=== PATIENT | male | born 1970 | race American Indian/Alaskan Native ===

== ENCOUNTER 2020-02-04 10:07 | Emergency (ER) | payer BC, OTHER ==
--- NOTE | 2020-02-04 10:28 | EDM.PDOC ---
ED HPI GENERAL MEDICAL PROBLEM - General Chief Complaint: Eye Problems Stated Complaint: [id number] SPRAYED HAND SANITZIER IN EYE/ SWOLLEN Time Seen by Provider: 02/04/20 10:27 Source of Information: Reports: Patient, RN, RN Notes Reviewed History Limitations: Reports: No Limitations - History of Present Illness INITIAL COMMENTS - FREE TEXT/NARRATIVE: Pt presents stating he put some hand eligibility technician in his hand and then it splashed up into his right eye. Pt states burning, blurring and irritated. Pt admits he instinctively rubbed the eye immediately and feels that he scratched it. He then irrigated the eye for several minutes with tap water, then reported to the nurse at his facility and she irrigated the eye again. Pt states it feels like something is in his eye or has scratched it. Pt states this happened while he was working at [employer]. Right Eye Pain Score (Numeric/FACES): 2 - Related Data Allergies Allergy/AdvReac Type Severity Reaction Status Date / Time No Known Allergies Allergy Verified 02/04/20 10:15 Home Meds: Home Meds Amoxicillin 500 mg PO DAILY 02/04/20 [History] Pioglitazone HCl 30 mg PO DAILY 02/04/20 [History] atorvaSTATin [Lipitor] 10 mg PO BEDTIME 02/04/20 [History] glipiZIDE [Glucotrol XL] 10 mg PO DAILY 02/04/20 [History] lisinopriL [Lisinopril] 10 mg PO DAILY 02/04/20 [History] metFORMIN [Glucophage] 1,000 mg PO BIDMEALS 02/04/20 [History] Past Medical History Cardiovascular History: Reports: None Respiratory History: Reports: None Gastrointestinal History: Reports: None Genitourinary History: Reports: None Musculoskeletal History: Reports: None Neurological History: Reports: None Psychiatric History: Reports: None Endocrine/Metabolic History: Reports: Diabetes, Type II Hematologic History: Reports: None Immunologic History: Reports: None Oncologic (Cancer) History: Reports: None Dermatologic History: Reports: None - Infectious Disease History Infectious Disease History: Reports: None - Past Surgical History Head Surgeries/Procedures: Reports: None HEENT Surgical History: Reports: Visual Other HEENT Surgeries/Procedures: hx dental surgery Social & Family History - Tobacco Use Smoking Status *Q: Former Smoker Years of Tobacco use: 20 Packs/Tins Daily: 0 Used Tobacco, but Quit: Yes Month/Year Tobacco Last Used: 08 - Caffeine Use Caffeine Use: Reports: Coffee, Soda - Recreational Drug Use Recreational Drug Use: No - Living Situation & Occupation Occupation: Employed ED ROS GENERAL - Review of Systems Review Of Systems: Comprehensive ROS is negative, except as noted in HPI. ED EXAM GENERAL W FULL EYE - Physical Exam Exam: See Below Exam Limited By: No Limitations General Appearance: Alert, WD/WN, No Apparent Distress Eye Exam: Right Eye: Conjunctival Injection, Corneal Abrasion, Left Eye: Normal Inspection, Bilateral Eye: EOMI, PERRL Eyelids: Right: Edema (mild swelling), Lid Everted for Exam, Left: Normal Appearance Conjunctiva & Sclera: Right: Conjunctival Edema, Injected, Left: Normal Appearance Cornea Exam: Right: Corneal Abrasion, Left: Normal Appearance Extraocular Movements: Bilateral: Intact Pupils: Normal Accommodation Pupillary Size: Bilateral: 3 mm Pupillary Reaction: Bilateral: Brisk Anterior Chamber: Right: Normal Appearance Throat/Mouth: Normal Inspection Head: Atraumatic, Normocephalic Respiratory/Chest: No Respiratory Distress Neurological: Alert, Oriented, CN II-XII Intact, No Motor/Sensory Deficits Psychiatric: Normal Mood Skin Exam: Warm, Dry, Intact Course - Vital Signs Last Recorded V/S: Last Vital Signs Temp 97.1 F 02/04/20 10:10 Pulse 72 02/04/20 10:10 Resp 18 02/04/20 10:10 BP 146/95 H 02/04/20 10:10 Pulse Ox 100 02/04/20 10:10 - Orders/Labs/Meds Orders: Active Orders 24 hr Category Date Time Status Vaccines to be Administered [RC] PER UNIT ROUTINE Care 02/04/20 10:37 Active Meds: Medications Discontinued Medications Generic Name Dose Route Start Last Admin Trade Name Freq PRN Reason Stop Dose Admin Diphtheria/Tetanus/Acell Pertussis 0.5 ml 02/04/20 10:37 02/04/20 10:57 Adacel IM 02/04/20 10:38 0.5 ml .ONCE ONE Administration Gentamicin Sulfate 1 ml 02/04/20 10:35 02/04/20 10:59 Garamycin 0.3% Ophth Soln EYERT 02/04/20 10:36 1 ml ONETIME ONE Administration Prednisolone Acetate 1 ml 02/04/20 10:36 02/04/20 10:59 Pred Forte 1% Ophth Susp EYERT 02/04/20 10:37 1 ml ONETIME ONE Administration Tetracaine HCl 1 ml 02/04/20 10:34 02/04/20 10:59 Tetracaine 0.5% Steri-Unit Kaye EYERT 02/04/20 10:35 1 ml ONETIME ONE Administration Departure - Departure Time of Disposition: 11:12 Disposition: Home, Self-Care 01 Condition: Good Clinical Impression: Chemical keratoconjunctivitis of right eye Corneal abrasion Qualifiers: Encounter type: initial encounter Laterality: right Qualified Code(s): S05.01XA - Injury of conjunctiva and corneal abrasion without foreign body, right eye, initial encounter - Discharge Information *PRESCRIPTION DRUG MONITORING PROGRAM REVIEWED*: Not Applicable *COPY OF PRESCRIPTION DRUG MONITORING REPORT IN PATIENT BERENICE: Not Applicable Instructions: Chemical Conjunctivitis, Adult, Corneal Abrasion, [id number] Forms: ED Department Discharge Additional Instructions: Jeffery (Tetracaine) Eye Solution: 1 drop to right eye every 4 to 6 hours as needed for pain for one day only. Gentamicin Ophthalmic Solution: 1 drop to right eye four times a day for 5 days. Prednisolone Ophthalmic Solution: 1 drop to right eye twice a day for 3 days. Use Ibuprofen (Motrin/Advil) if needed for pain or headache. Wear sunglasses for the next several days to reduce eye pain and prevent headaches. Follow up in eye clinic tomorrow for recheck. Sepsis Event Note (ED) - Evaluation Sepsis Screening Result: No Definite Risk - Focused Exam Vital Signs: Vital Signs Temp Pulse Resp BP Pulse Ox 02/04/20 10:10 97.1 F 72 18 146/95 H 100 - My Orders Last 24 Hours: My Active Orders 02/04/20 10:37 Vaccines to be Administered [RC] PER UNIT ROUTINE - Assessment/Plan Last 24 Hours: My Active Orders 02/04/20 10:37 Vaccines to be Administered [RC] PER UNIT ROUTINE
[2020-02-04] MEDS ORDERED: Tetracaine HCl/PF 0.5% 4 ML Bottle EYERT ONE (10:34)
[2020-02-04] MEDS ORDERED: Gentamicin 0.3% Ophth Soln 5 ML Bottle EYERT ONE (10:35)
[2020-02-04] MEDS ORDERED: prednisoLONE Acetate 1% Ophth Susp 5 ML Bottle EYERT ONE (10:36)
[2020-02-04] MEDS ORDERED: Diphtheria,Pertussis(Acell),Tetanus Vaccine 0.5 ML SDV IM ONE (10:37)
== END 2020-02-04 11:29 | disposition home or self-care (01) ==
LOC: DL.ED 10:07
DX: S05.01XA Injury of conjunctiva and corneal abrasion without foreign body, right eye, initial encounter (principal); H16.201 Unspecified keratoconjunctivitis, right eye; E11.9 Type 2 diabetes mellitus without complications; Z79.84 Long term (current) use of oral hypoglycemic drugs; Z79.899 Other long term (current) drug therapy; Z87.891 Personal history of nicotine dependence; Z23 Encounter for immunization; X58.XXXA Exposure to other specified factors, initial encounter
CPT/HCPCS: 90471; 90715; 99283; A9270